=== PATIENT | female | born 1970 | race Caucasian/White ===

== ENCOUNTER → 2017-09-04 | Outpatient (CLI) | payer BC ==
[2017-09-04] MEDS: SOD CHLORIDE 0.9% 100 ML (16:45)
[2017-09-04] MEDS: IOHEXOL 300MG/ML 150 ML BTL (16:45)
== END | disposition home or self-care (01) ==
LOC: LAB 15:48
DX: N39.0 Urinary tract infection, site not specified (principal)
CPT/HCPCS: 74178; 84703

== ENCOUNTER 2017-10-11 10:51 | Day surgery (SDC) | payer BC ==
[~2017-10-11 10:51] MED LIST: CEFTRIAXONE 1 GM/NS 50 ML IVPB
[2017-10-11] MEDS ORDERED: ROCURONIUM 50 MG INJ (12:16)
[2017-10-11] MEDS ORDERED: NEOSTIGMINE 3 MG/3 ML SYRINGE (12:16)
[2017-10-11] MEDS ORDERED: LIDOCAINE 2% (SDV) 5 ML INJ (12:16)
[2017-10-11] MEDS ORDERED: GLYCOPYRROLATE 0.4 MG INJ (12:16)
[2017-10-11] MEDS ORDERED: PROPOFOL 20 ML (12:16)
[2017-10-11] MEDS ORDERED: MIDAZOLAM 1 MG/ML 2 ML INJ (12:16)
[2017-10-11] MEDS ORDERED: FENTAnyl 50 MCG/ML VIAL (12:17)
[2017-10-11] MEDS ORDERED: ONDANSETRON 4 MG INJ (12:59)
[2017-10-11] MEDS ORDERED: DEXAMETHASONE 4 MG/ML 1 ML INJ (12:59)
[2017-10-11] MEDS: IOHEXOL 300MG/ML 30 ML BTL (14:02)
[2017-10-11] MEDS ORDERED: HYDROCODONE/APAP (5/325) TAB PO (15:00)
== END 2017-10-11 16:10 | disposition home or self-care (01) ==
LOC: SDS 10:51
DX: Z03.89 Encounter for observation for other suspected diseases and conditions ruled out (principal); Z87.440 Personal history of urinary (tract) infections; G56.00 Carpal tunnel syndrome, unspecified upper limb; K58.9 Irritable bowel syndrome, unspecified; Z88.5 Allergy status to narcotic agent; Z88.2 Allergy status to sulfonamides; Z72.0 Tobacco use; Z83.3 Family history of diabetes mellitus; Z82.49 Family history of ischemic heart disease and other diseases of the circulatory system
CPT/HCPCS: 52332; 74430; 84703; 87086